=== PATIENT | male | born 1975 | race Caucasian/White ===

== ENCOUNTER 2021-04-21 13:26 | Emergency (ER) | payer BC ==
[2021-04-21] MEDS: Dexamethasone 4 MG/ML SDV IM ONE (14:02)
[2021-04-21] MEDS: diphenhydrAMINE 25 MG Cap PO ONE (14:03)
[2021-04-21] MEDS: Famotidine 20 MG Tab PO ONE (14:08)
== END 2021-04-21 14:20 | disposition home or self-care (01) ==
LOC: CC.ED 13:26
DX: T78.40XA Allergy, unspecified, initial encounter (principal)
CPT/HCPCS: 96372; 99283; A9270-GY; J1100

== ENCOUNTER 2022-09-14 21:35 | Emergency (ER) | payer BC ==
[2022-09-14] MEDS: Tetracaine HCl/PF 0.5% 4 ML Bottle EYELF STA (21:46)
[2022-09-14] MEDS: Fluorescein 1 MG Ophth Strip EYELF STA (21:47)
[2022-09-14] MEDS: Distilled Water Ophth Irrig Soln 120 ML Bottle EYELF ONE (21:49)
[2022-09-14] MEDS: Gentamicin 0.3% Ophth Soln 5 ML Bottle EYELF STA (21:59)
== END 2022-09-14 22:10 | disposition home or self-care (01) ==
LOC: CC.ED 21:35
DX: S05.02XA Injury of conjunctiva and corneal abrasion without foreign body, left eye, initial encounter (principal); I10 Essential (primary) hypertension; Z79.899 Other long term (current) drug therapy; X58.XXXA Exposure to other specified factors, initial encounter
CPT/HCPCS: 99283; A9270-GY; J3490

== ENCOUNTER 2023-05-16 10:21 | Day surgery (SDC) | payer BC ==
[2023-05-16] MEDS: Lactated Ringers 1,000 ML IV SCH (10:40)
[2023-05-16] MEDS ORDERED: Ketamine 200 MG/20 ML MDV ONE (11:15)
[2023-05-16] MEDS ORDERED: fentaNYL 50 MCG/ML SDV ONE ×2 (11:15)
[2023-05-16] MEDS ORDERED: Propofol 200 MG/20 ML SDV ONE ×2 (11:15)
== END 2023-05-16 12:36 | disposition home or self-care (01) ==
LOC: CC.SDS 10:21
PROVIDERS: ATTEND Family Medicine
DX: Z12.11 Encounter for screening for malignant neoplasm of colon (principal); K21.9 Gastro-esophageal reflux disease without esophagitis; N40.0 Benign prostatic hyperplasia without lower urinary tract symptoms; E78.00 Pure hypercholesterolemia, unspecified; Z79.899 Other long term (current) drug therapy
CPT/HCPCS: J2704; J3010; J3490; J7120